=== PATIENT | female | born 1940 | race Caucasian/White ===

== ENCOUNTER → 2021-10-03 13:04 | Outpatient (BNVA) | payer MEDICARE, OTHER, SELFPAY | PROVIDERS: PCP Internal Medicine; Visit Provider Psychiatry & Neurology Neurology | DX: G20 Parkinson's disease (principal); F32.A Depression, unspecified | CPT/HCPCS: 99212 ==

== ENCOUNTER → 2022-01-25 13:49 | Outpatient (BNVA) | payer MEDICARE, OTHER, SELFPAY | PROVIDERS: PCP Internal Medicine; Visit Provider Psychiatry & Neurology Neurology | DX: G20 Parkinson's disease (principal); F32.A Depression, unspecified; I87.8 Other specified disorders of veins | CPT/HCPCS: 99212 ==

== ENCOUNTER → 2022-05-17 11:15 | Outpatient (BNVA) | payer MEDICARE, OTHER, SELFPAY | PROVIDERS: PCP Internal Medicine; Visit Provider Psychiatry & Neurology Neurology | DX: G20 Parkinson's disease (principal); I87.8 Other specified disorders of veins; F32.A Depression, unspecified; Z79.899 Other long term (current) drug therapy | CPT/HCPCS: 99212 ==

== ENCOUNTER → 2022-11-01 11:22 | Outpatient (BNVA) | payer MEDICARE, OTHER, SELFPAY | PROVIDERS: PCP Internal Medicine; Visit Provider Psychiatry & Neurology Neurology | DX: G20 Parkinson's disease (principal); F32.A Depression, unspecified; I87.8 Other specified disorders of veins; Z79.899 Other long term (current) drug therapy | CPT/HCPCS: 99212 ==